=== PATIENT | male | born 2000 | race African-American/Black ===

== ENCOUNTER 2021-12-05 16:58 | Emergency (ER) | payer MEDICAID, SELFPAY ==
[2021-12-05 17:45] VITALS: BP 137/94; PULSE 82; RESP 18; TEMP 36.7; O2SAT 99; BMI 22.0
--- NOTE | 2021-12-05 19:27 | ED.WOUNDLAC ---
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 Patient states that he was using a coil cutter when he accidentally sliced into his left leg. Patient denies any numbness, tingling, dizziness, lightheadedness, abdominal pain, nausea, vomiting, fever, chills, blurry vision, double vision, loss of vision, chest pain, difficulty breathing, shortness of breath, back pain, night sweats, pain with urination, increased urinary frequency, increased urinary urgency, blood in his urine or stool, syncope or a near syncopal episode, bowel incontinence, bladder incontinence, bowel retention, bladder retention, or any other complaints at this time. Patient states that he does not know if he is up to date on tetanus. Patient denies any allergies. Onset (ago): hour(s) Context: accidental Associated symptoms: none Related Data Previous Rx's Medication Instructions Recorded cephalexin 500 mg capsule 500 mg PO Q6H 7 days #28 caps 12/05/21 Allergies Allergy/AdvReac Type Severity Reaction Status Date / Time No Known Allergies Allergy Verified 12/05/21 17:45 Review of Systems Constitutional: Constitutional: Reports no additional constitutional complaints, Denies chills, Denies fever(s) and Denies night sweats Eyes: Eyes: Reports no additional eye complaints, Denies blurry vision, Denies change in vision, Denies diplopia, Denies eye discharge, Denies loss of vision and Denies eye pain ENT: Denies dizziness Cardiovascular: Cardiovascular: Reports no additional cardiovascular complaints, Denies chest pain, Denies lightheadedness, Denies Loss of Consciousness and Denies dyspnea Respiratory: Respiratory: Reports no additional respiratory complaints and Denies dyspnea Gastrointestinal: Gastrointestinal: Reports no additional gastrointestinal complaints, Denies abdominal pain, Denies melena, Denies hematochezia, Denies change in bowel habits and Denies change in stool character Genitourinary: Genitourinary: Reports no additional male genitourinary complaints, Denies hematuria, Denies oliguria, Denies difficulty urinating, Denies dysuria, Denies urinary frequency, Denies urinary hesitancy, Denies urinary incontinence and Denies urinary urgency Musculoskeletal: Musculoskeletal: Reports no additional musculoskeletal complaints, Denies numbness and Denies tingling Integumentary/Breasts: Comments: left leg laceration Neurologic: Denies dizziness, Denies loss of vision, Denies numbness and Denies tingling Psychiatric: Psychiatric: Reports no additional psychiatric complaints Endocrine: Endocrine: Reports no additional endocrine complaints Hematologic/Lymphatic: Hematologic/Lymphatic: Reports no additional hematologic/lymphatic complaints Allergic/Immunologic: Allergic/Immunologic: Reports no additional allergic/immunologic complaints [facility] Past Medical History Attestation statement: The following information was validated with the patient. Source: old records reviewed Social History Social History Advance Directives: No Advance Directives Information Provided: No Physical Exam Vital Signs: Vital Signs: Last Vital Signs Temp 98.1 F 12/05/21 17:45 Pulse 82 12/05/21 17:45 Resp 18 12/05/21 17:45 BP 137/94 H 12/05/21 17:45 Pulse Ox 99 12/05/21 17:45 O2 Del Method 12/05/21 17:45 BMI result Body Mass Index 22.0 Const: General: cooperative, no acute distress, alert and awake Nutritional Appearance: well nourished Orientation/consciousness: patient oriented x3 Limitations: no limitations HEENT: Head: Yes normal to inspection and Yes atraumatic Ears: hearing grossly normal bilaterally and external ears normal General nose exam: Normal external nose present, no nasal discharge noted and no epistaxis Face and sinus: Yes normal facial exam, No abrasion and No laceration Mouth: Normal oral and palatal mucosa present, no drooling and no muffled voice Eyes: General: appearance normal, both eyes and all related structures Periorbital: periorbital findings normal Eyelids: Yes eyelids normal Conjunctivae: conjunctivae normal Pupils: Equal, round and reactive pupils present EOM: EOMs intact bilaterally Neck: Neck: Yes normal visual inspection, Yes full ROM and Yes no lymphadenopathy Chest: Chest palpation & inspection: normal inspection of the chest Resp: Effort & Inspection: normal respiratory effort and able to speak in complete sentences Auscultation: clear to auscultation bilaterally Cardio: Rate: regular rate Rhythm: regular rhythm GI: Inspection: Yes normal to inspection Skin: Other: 2cm long by 3cm wide laceration to the left anterior thigh just superior and medial of the patella Neuro: General: patient oriented x3 and moves all extremities Cranial nerves: Yes Equal, round and reactive pupils present Cognition (Neuro): normal cognition Motor exam (neuro): 5/5 motor strength present throughout Sensory Exam: Normal double simultaneous stimulation for sensation Coordination: [id number] test normal Extrem: General: Yes full ROM and Yes capillary refill normal Psych: Appearance: grossly normal Mental Status: mental status grossly normal Affect: normal affect Attitude: cooperative Thought process: Normal thought process present Thought content: Normal thought content present Insight: Good insight present (Psych) MDM - Wound/Laceration MDM Narrative Medical decision making narrative: Patient is a 21 year old male presenting to the emergency department today with a left leg laceration. Patient's physical exam showed a 2cm long by 3cm wide laceration to the left anterior thigh just superior and medial of the left patella. Patient's left lower extremity ROM was intact however, the patient seemed to be in pain with all movements. I explained my physical exam findings as well as all test results to the patient and the patient's father. I answered all questions asked by the patient and the patient's father. Patient received IM Morphine which he stated helped his pain significantly. Patient's laceration was repaired, per procedure note, without incident. Patient was given crutches with crutch instructions. Patient was given first dose of antibiotic here in the department and updated on his tetanus booster. I stressed the importance of the patient taking his medication as prescribed. I stressed the importance of the patient following up with his primary care provider and an orthopedic provider. I stressed the importance of the patient returning to the emergency department immediately if his symptoms were to worsen or if he were to develop any dizziness, shortness of breath, difficulty breathing, chest pain, blurry vision, loss of vision, nausea, vomiting, abdominal pain, fever, chills, back pain, or any other complaints. Patient and the patient's father verbalized agreement and understanding with this treatment plan and discharge. Differential Diagnosis Differential diagnosis: Likely laceration Medical Records Attestation: I reviewed the patient's medical records. Procedures Laceration Laceration 1: Site: lower extremity Side (If applicable): left Size (cm): 2 Description: linear Local Anesthetic: lidocaine 1% Amount of anesthesia used (mL): 4 Pre-repair: wound explored and irrigated extensively Skin layer closed with: other (prolene) Size (cm): 5-0 Number of sutures: 6 Technique: simple, interrupted Subcutaneous layer closed with: chromic gut Size: 6-0 Number of sutures: 1 Technique: simple, interrupted Orthopedic Splinting/Casting Injury #1: Side: left Lower Extremity Injury Location: upper leg and knee Other Orthopedic Equipment: crutches Discharge Plan Discharge Clinical Impression: Laceration of leg Patient Disposition: Home, Self-Care Instructions: Care For Your Stitches (ED), Crutch Instructions (ED), Laceration (ED), Care For Your Absorbable Stitches (ED) Additional Instructions: Have your sutures removed in 10-14 days. Do NOT soak the sutured area. Perform daily wound checks and daily dressing changes. Follow up with your primary care provider and an orthopedic provider. Return to the emergency department immediately if your symptoms worsen or if you develop any dizziness, shortness of breath, difficulty breathing, chest pain, blurry vision, loss of vision, nausea, vomiting, abdominal pain, fever, chills, back pain, or any other complaints. Gabrielle que le quiten las suturas en 10 a 14 d?as. NO remoje el ?ernst suturada. Realice controles diarios de heridas y cambios diarios de vendajes.Gabrielle un seguimiento con leon proveedor de atenci?n primaria y un proveedor ortop?dico. Regrese a la starr de emergencias de inmediato si garcia s?ntomas empeoran o si presenta mareos, dificultad para respirar, dolor de pecho, visi?n borrosa, p?rdida de la visi?n, n?useas, v?mitos, dolor abdominal, fiebre, escalofr?os, dolor de espalda o cualquier otras quejas. Prescriptions: New cephalexin 500 mg capsule 500 mg PO Q6H 7 Days Qty: 28 0RF Referrals: [facility] [place] [facility] [place] Group] (Call to establish and follow up with a primary care provider. If you already have a primary care provider, please follow up with them. Llame para establecer y hacer un seguimiento con un proveedor de atenci?n primaria. Si ya tiene un proveedor de atenci?n primaria, gabrielle un seguimiento con ?l.) [facility] [place] [facility] [[facility]] (Call to establish and follow up with a primary care provider. If you already have a primary care provider, please follow up with them. Llame para establecer y hacer un seguimiento con un proveedor de atenci?n primaria. Si ya tiene un proveedor de atenci?n primaria, gabrielle un seguimiento con ?l.) [facility] [Provider Group] (Call to establish and follow up with a primary care provider. If you already have a primary care provider, please follow up with them. Llame para establecer y hacer un seguimiento con un proveedor de atenci?n primaria. Si ya tiene un proveedor de atenci?n primaria, gabrielle un seguimiento con ?l.) [facility] [place] Group] (Call to establish and follow up with an orthopedic provider. Llame para establecer y hacer un seguimiento con un proveedor ortop?dico.) [facility] [Physician] - Stand Alone Forms: Work/School Release Interventions: ED Discharge Assessment Last Done: 12/05/21 20:57 Print Language: Romanian
[2021-12-05] MEDS: cephALEXin 500 MG CAPSULE PO (20:44)
[2021-12-05] MEDS: Morphine Sulfate 2 MG/ML CARTRIDGE 1 MG IM (20:44)
[2021-12-05] MEDS: Diphth,Pertus(ACell),Tet Adult 0.5 ML SYRINGE IM (20:44)
[2021-12-05] MEDS: Lidocaine HCl 1 % MPF 2 ML VIAL 4 ML INFILTRATI (20:45)
--- NOTE | 2021-12-05 20:54 | PC.NURSE ---
PT EVALUATED BY PROVIDER. WOUND CLEANSED, SUTURED BY PROVIDER. DRESSED BY TECH. CRUTCH TEACHING PROVIDED WITH POSITIVE TEACHBACK
[2021-12-05 20:58] VITALS: BP 130/70; PULSE 78; RESP 16; O2SAT 98
== END 2021-12-05 21:00 | disposition home or self-care (01) ==
PROVIDERS: Emergency Provider Emergency Medicine Emergency Medical Services
DX: S81.812A Laceration without foreign body, left lower leg, initial encounter (principal); W27.8XXA Contact with other nonpowered hand tool, initial encounter; Y93.H2 Activity, gardening and landscaping; Y92.017 Garden or yard in single-family (private) house as the place of occurrence of the external cause; Y99.8 Other external cause status
CPT/HCPCS: 12031; 90471; 90715; 99282; 99284; J2270